=== PATIENT | female | born 1950 | race Caucasian/White ===

== ENCOUNTER → 2016-12-19 | Outpatient (CLI) | payer BC ==
--- NOTE | 2016-12-19 12:58 | CT ---
EXAMINATION TYPE: CT abdomen pelvis w con DATE OF EXAM: 12/19/2016 12:45 PM REFERENCE: NONE HISTORY: R19.00 pelvic mass HISTORY: Lt ovarian mass REFERENCE: NONE CT DLP: 520.6 mGy Automated exposure control for dose reduction was used. TECHNIQUE: Helical acquisition through the abdomen and pelvis was obtained following the oral ingesti on of with Oral Contrast and following intravenous administration of 100 mL of Omnipaque 300. The sapna a was reformatted in axial, coronal and sagittal projections. FINDINGS: There is considerable breathing motion artifact on this study. No definite lung parenchyma l lesion is seen. There is no pleural or pericardial fluid. The heart is not enlarged. Within the abdomen, the liver is not enlarged. The liver is mildly fatty infiltrated. The gallbladder is contracted. The spleen is normal. Both adrenal glands appear normal. Both kidneys demonstrate function and appear morphologically normal. The pancreas is unremarkable. There is no significant retroperitoneal, iliac or inguinal adenopathy. There is a heterogenous 7.7 x 7.9 x 6.9 cm lesion in the left hemipelvis with both cystic and solid c omponents. I cannot identify a separate uterus or ovaries. The bladder is unremarkable. The sigmoid colon is largely fluid-filled. The remainder of the colon has a moderate amount of fluid present within it as well. The appendix is not visualized with certainty. Small bowel loops appear unremarkable. No free fluid and no free air is seen. There is mild facet arthropathy in the lower lumbar spine. No bony destructive lesion is seen. IMPRESSION: 1. LARGE, HETEROGENOUS PELVIC MASS. 2. MILD FATTY INFILTRATION OF THE LIVER. 3. MILD FACET ARTHROPATHY WITHIN THE LOWER LUMBAR FACETS.
== END | disposition home or self-care (01) ==
LOC: RADCTMAIN 12:04
PROVIDERS: ATTEND Obstetrics & Gynecology
DX: K76.0 Fatty (change of) liver, not elsewhere classified (principal); R19.00 Intra-abdominal and pelvic swelling, mass and lump, unspecified site
CPT/HCPCS: 74177; Q9967

== ENCOUNTER → 2016-12-20 | Outpatient (CLI) | payer BC ==
--- NOTE | 2016-12-20 14:02 | MM ---
Reason for exam: clinical finding. Last mammogram was performed 2 years and 4 months ago. History: Patient is postmenopausal and is nulliparous. 2 cyst aspirations of the left breast. Indicated problem(s): lump or thickening in the right breast. Physical Findings: Nurse Summary: a 2cm nodule in the right breast at 6 o'clock retroareolar (nurse mm). MG 3D Diag Mammo W/Cad TOBI Bilateral CC and MLO view(s) were taken. Prior study comparison: August 26, 2014, bilateral MG screening mammo w CAD. July 24, 2012, bilateral digital screening mammo w/CAD. The breast tissue is heterogeneously dense. This may lower the sensitivity of mammography. Finding: There is an intermediate concern, suspicious 15 mm high density, spiculated round mass located 2.5cm from the nipple in the lower inner quadrant middle position of the right breast. New finding since August 26, 2014 and July 24, 2012. These results were verbally communicated with the patient and result sheet given to the patient on 12/20/16. ASSESSMENT: Suspicious, BI-RAD 4 RECOMMENDATION: Surgical consultation and ultrasound core biopsy of the right breast. Called with mammographic findings and has scheduled an appointment for the patient for 01/01/17 at 10:[address] Ricci. Biopsy scheduled for 12/27/16 at 1:00 PRELIMINARY REPORT CALLED AND FAXED TO DR. RICCI ON 12/20/16 AT 300/TMP.
--- NOTE | 2016-12-20 14:03 | USB ---
Reason for exam: clinical finding. History: Patient is postmenopausal and is nulliparous. 2 cyst aspirations of the left breast. US Breast Limited RT Right breast ultrasound demonstrates a 1.8 x 1.8 x 1.3cm irregular, solid, hypoechoic lesion at 5 o'clock. These results were verbally communicated with the patient and result sheet given to the patient on 12/20/16. ASSESSMENT: Suspicious, BI-RAD 4 RECOMMENDATION: Surgical consultation and ultrasound core biopsy of the right breast. Called with mammographic findings and has scheduled an appointment for the patient for 01/01/17 at 10:45 with Keiry Dawson. Biopsy scheduled for 12/27/16 at 1:00 PRELIMINARY REPORT CALLED AND FAXED TO DR. ANDERSON ON 12/20/16 AT 300/TMP.
== END | disposition home or self-care (01) ==
LOC: RADMAMWWP 08:44
PROVIDERS: ATTEND Obstetrics & Gynecology
DX: N60.01 Solitary cyst of right breast (principal)
CPT/HCPCS: 76642; G0204; G0279

== ENCOUNTER → 2016-12-27 | Day surgery (SDC) | payer BC ==
[~2016-12-27] MED LIST: BACITRACIN OINT 1 EACH PACKET TOPICAL ONE; LIDOCAINE 1% INJ 10MG/ML (20 ML MDV) ONE; LIDOCAINE 1%-EPI 1:100,000 20 ML VIAL ONE
--- NOTE | 2016-12-27 15:06 | USB ---
EXAMINATION TYPE: US biopsy breast VAD RT, MG diagnostic mammo RT wo CAD DATE OF EXAM: 12/27/2016 CLINICAL HISTORY: R92.8 Abn Mammogram. TECHNIQUE: Ultrasound guided core biopsy of right 5:00 breast. COMPARISON: NONE FINDINGS: The procedure of ultrasound guided core biopsy was explained to the patient. Benefits, alternatives, and risks were discussed. An informed consent was then obtained. The patient was placed in supine positioning for imaging and for the procedure. The overlying skin was prepped and draped in usual sterile fashion. Lidocaine buffered with bicarbonate was used as anesthetic into the skin and subcutaneous tissue up to area of concern in the right 5:00 breast. A flaco was made with surgical scalpel. Under ultrasound guidance, a 12-gauge vacuum assisted biopsy gun device was used to obtain 4 core samples. Following this, a biopsy clip was left in lesion. Postprocedural mammogram demonstrates appropriate deployment. The patient tolerated the procedure well without any immediate complication. The patient was kept in the radiology department for short stay after the procedure and then discharged home in stable condition. IMPRESSION: Successful, uncomplicated ultrasound guided core biopsy of area of concern in the right 5:00 breast, full pathology results to follow. Pathology Results: Malignant BREAST, RIGHT, ULTRASOUND GUIDED CORE BIOPSY: INVASIVE CARCINOMA, PENDING IMMUNOHISTOCHEMICAL STAINS. 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 Recommendation Surgical consult of the right breast. ALFREDD
== END ==
LOC: RADUSWWP 13:45
PROVIDERS: ATTEND Obstetrics & Gynecology
DX: C50.311 Malignant neoplasm of lower-inner quadrant of right female breast (principal); R92.8 Other abnormal and inconclusive findings on diagnostic imaging of breast
CPT/HCPCS: 88305; 88342; 88341; 19083; G0206; A4648; J2001

== ENCOUNTER → 2017-06-25 | Outpatient (CLI) | payer BC ==
--- NOTE | 2017-06-25 12:36 | XR ---
EXAMINATION TYPE: XR chest 2V DATE OF EXAM: 06/25/2017 COMPARISON: NONE HISTORY: Shortness of breath TECHNIQUE: Frontal and lateral views of the chest are obtained. FINDINGS: Scattered senescent parenchymal changes noted. Hyperinflation compatible with COPD. No evidence for infiltrate. No evidence for atelectasis. Heart size is stable. Mediastinal structures are stable and grossly unremarkable. No evidence for hilar prominence. Degenerative changes dorsal spine. IMPRESSION: 1. No evidence for acute pulmonary disease.
== END ==
LOC: RADXRMAIN 11:54
PROVIDERS: ATTEND Internal Medicine Hematology & Oncology
DX: C50.111 Malignant neoplasm of central portion of right female breast (principal); R05 Cough
CPT/HCPCS: 71020

== ENCOUNTER → 2018-01-06 | Outpatient (CLI) | payer BC, MEDICARE ==
--- NOTE | 2018-01-06 11:16 | MM ---
Reason for exam: additional evaluation requested from prior study. Last mammogram was performed 1 year ago. History: Patient is postmenopausal, has history of breast cancer at age 66, has history of other cancer at age 66, and is nulliparous. Malignant US biopsy breast VAD RT of the right breast, December 27, 2016. Mastectomy of the right breast, 2016. Chemotherapy, 2017. 2 cyst aspirations of the left breast. Taking antineoplastic for 1 month beginning at age 66. Physical Findings: Nurse did not find any significant physical abnormalities on exam. MG 3D Diag Mammo W/Cad LT CC, MLO, and ML view(s) were taken of the left breast. Prior study comparison: December 27, 2016, right breast MG diagnostic mammo RT wo CAD. December 20, 2016, bilateral MG 3d diag mammo w/cad TOBI. The breast tissue is heterogeneously dense. This may lower the sensitivity of mammography. There is chronic nodularity in the left breast. No significant new findings when compared with previous films. These results were verbally communicated with the patient and result sheet given to the patient on 01/06/18. ASSESSMENT: Benign, BI-RAD 2 RECOMMENDATION: Routine screening mammogram of the left breast in 1 year.
== END | disposition home or self-care (01) ==
LOC: RADMAMWWP 10:10
PROVIDERS: ATTEND Obstetrics & Gynecology
DX: Z08 Encounter for follow-up examination after completed treatment for malignant neoplasm (principal); Z85.3 Personal history of malignant neoplasm of breast
CPT/HCPCS: 77065; G0279; 77061

== ENCOUNTER → 2018-07-17 | Outpatient (CLI) | payer MEDICARE ==
--- NOTE | 2018-07-17 13:38 | CTL ---
EXAMINATION TYPE: CT Low Dose Lung DATE OF EXAM ORDERED: 07/17/2018 HISTORY: Long-term tobacco use. Lung cancer screening. History of breast cancer. CT DLP: 53.[address] CTDI: 1.5 mGy Automated exposure control for dose reduction was used. SCREENING VISIT: Initial study COMPARISON: None TECHNIQUE: Low dose computed tomography scan was performed through the chest at 1 mm thick sections a nd reconstructed images in the coronal plane at [address] DIAGNOSTIC QUALITY: Satisfactory FINDINGS: LUNG NODULES: None. None of significance. Few scattered small nodules are noted. For reference left l ower lobe 4 x 2 mm nodule is seen axial image 231. LUNGS: COPD: Severity: Moderate Fibrosis: Severity: Mild to moderate biapical. Mild to minimal bibasilar Lymph nodes: None Other findings: None BILATERAL PLEURAL SPACE: Effusion: None Calcification: None Thickening: None Pneumothorax: None HEART: Heart Size: Normal Coronary calcification: Moderate LAD and RCA distribution Pericardial effusion: None OTHER FINDINGS: Upper abdomen: None Bony thorax: None Supraclavicular region: None Other: Mild to moderate calcified plaque of the descending aorta. Ascending aorta measures up to 3.8 cm in diameter axial image 130. IMPRESSION: Moderate emphysematous change with few scattered tiny nodules. No suspicious greater than [address]. FOLLOW UP [address] CHEST RECOMMENDATION: Annual low-dose lung screening CT CT LUNG RAD: Lung-Rad 2 Benign Appearance or Behavior
== END | disposition home or self-care (01) ==
LOC: RADCTMAIN 12:54
PROVIDERS: ATTEND Internal Medicine Hematology & Oncology
DX: Z12.2 Encounter for screening for malignant neoplasm of respiratory organs (principal); J43.9 Emphysema, unspecified; R91.8 Other nonspecific abnormal finding of lung field; Z87.891 Personal history of nicotine dependence

== ENCOUNTER 2018-08-30 13:00 | Emergency (ER) | payer MEDICARE ==
[2018-08-30 13:10] VITALS: BP 135/85; PULSE 82; RESP 18; TEMP 98.4
[2018-08-30] MEDS ORDERED: FLUCONAZOLE 100 MG TAB PO ONE (14:03)
--- NOTE | 2018-08-30 14:05 | ED ---
General Adult HPI - General Chief complaint: ENT Stated complaint: Abscess in mouth Time Seen by Provider: 08/30/18 13:11 Source: patient, RN notes reviewed, old records reviewed Mode of arrival: ambulatory Limitations: no limitations - History of Present Illness Initial comments: 67-year-old female patient past medical history of breast cancer status post lumpectomy, patient of chemotherapy greater than one year ago presents to ED with thrush. Patient states that she was seen for this problem approximately 2 weeks ago by her primary care provider and was prescribed nystatin mouth rinse. Patient stated that due to the poor taste she did not use this product as directed in the thrush did not resolve. Patient also complains of some left TMJ pain. Patient has a history of TMJ pain and uses a bite jaw at home. Pt denies all other complaints. Systemic: Pt denies fatigue, myalgia, fever/chills, rash. Pt denies weakness, night sweats, weight loss. Neuro: Pt denies headache, visual disturbances, syncope or pre-syncope. HEENT: Pt denies ocular discharge or irritation, otalgia, rhinorrhea, pharyngitis or notable lymphadenopathy. Cardiopulmonary: Pt denies chest pain, SOB, heart palpitations, dyspnea on exertion. Abdominal/GI: Pt denies abdominal pain, n/v/d. : Pt denies dysuria, burning w/ urination, frequency/urgency. Denies new onset urinary or bowel incontinence. MSK: Pt denies myalgia, loss of strength or function in extremities. Neuro: Pt denies new onset weakness, paresthesias. - Related Data Previous Rx's Medication Instructions Recorded Fluconazole [Diflucan] 100 mg PO DAILY 14 Days #14 tab 08/30/18 Allergies Allergy/AdvReac Type Severity Reaction Status Date / Time Penicillins Allergy Rash/Hives Verified 08/30/18 13:04 Review of Systems ROS Statement: Those systems with pertinent positive or pertinent negative responses have been documented in the HPI. ROS Other: All systems not noted in ROS Statement are negative. Past Medical History Past Medical History: Cancer, Thyroid Disorder Additional Past Medical History / Comment(s): breast CA History of Any Multi-Drug Resistant Organisms: None Reported Past Surgical History: Breast Surgery, Hysterectomy Additional Past Surgical History / Comment(s): R masectomy Past Psychological History: Anxiety Smoking Status: Current every day smoker Past Alcohol Use History: Daily Past Drug Use History: None Reported General Exam - General Exam Comments Initial Comments: Constitutional: NAD, AOX3, Pt has pleasant affect. HEENT: NC/AT, trachea midline, neck supple, no lymphadenopathy. Posterior pharynx non erythematous, without exudates. Oropharyngeal findings consistent with oral candidiasis. External ears appear normal, without discharge. Mucous membranes moist. Eyes PERRLA, EOM intact. There is no scleral icterus. No pallor noted. Left TMJ mildly tender with range of motion, patient has full range of motion, no trismus, no erythema, no warmth. Cardiopulmonary: RRR, no murmurs, rubs or gallops, no JVD noted. Lungs CTAB in anterior and posterior vogel. No peripheral edema. Abdominal exam: Abdomen soft and non-distended. Abdomen non-tender to palpation in all 4 quadrants. Bowel sounds active in LLQ. No hepatosplenomegaly. No ecchymosis Neuro: CN II-XII grossly intact. No nuchal rigidity. MSK: No posterior calf tenderness bilaterally, homans sign negative bilaterally. Posterior tibialis and radial pulse +2 bilaterally. Sensation intact in upper and lower extremities. Full active ROM in upper and lower extremities, 5/5 stregnth. Limitations: no limitations Course Vital Signs 08/30/18 13:04 Temperature 98.4 F Pulse Rate 82 Respiratory 18 Rate Blood Pressure 135/85 O2 Sat by Pulse 96 Oximetry Medical Decision Making - Medical Decision Making 67-year-old female patient presents to ED with oral candidiasis and TMJ pain. Patient vital signs stable, afebrile. Physical exam displayed TMJ pain reproducible by range of motion. Physical exam also displayed oral candidiasis. Patient administered 1 dose of Diflucan in ED, prescribed 2 weeks of Diflucan outpatient. Patient to follow up with primary care provider for continued evaluation and continued evaluation of TMJ pain. Patient recommended to use ibuprofen as needed for chronic TMJ pain. Patient to return to ED if new signs symptoms develop or if condition worsens in any way. Case discussed in depth with Dr. Trinh. Disposition Clinical Impression: Candidiasis of mouth Disposition: HOME SELF-CARE Condition: Stable Instructions (If sedation given, give patient instructions): Oral Candidiasis ( ED) Additional Instructions: Patient to adhere to previously discussed treatment plan and will take medication(s) as directed. Patient to follow up with PCP in 1-2 days. Patient to return to ED if symptoms do not improve. Prescriptions: Fluconazole [Diflucan] 100 mg PO DAILY 14 Days #14 tab Is patient prescribed a controlled substance at d/c from ED?: No Referrals: Haleigh Barkley MD [Primary Care Provider] - 1-2 days Time of Disposition: 14:05
== END 2018-08-30 14:23 | disposition home or self-care (01) ==
LOC: EC 13:00
DX: B37.0 Candidal stomatitis (principal); M26.622 Arthralgia of left temporomandibular joint; F17.200 Nicotine dependence, unspecified, uncomplicated; Z88.0 Allergy status to penicillin; Z85.3 Personal history of malignant neoplasm of breast; Z92.21 Personal history of antineoplastic chemotherapy
CPT/HCPCS: 99283